=== PATIENT | male | born 1945 | race Caucasian/White ===

== ENCOUNTER 2017-03-20 19:42 | Emergency (ER) | payer OTHER, MEDICARE ==
[~2017-03-20] VITALS: Ht 180.3 cm; Wt 95.2 kg
[~2017-03-20 19:42] MED LIST: BISOPROLOL-HCT1 EAC1 PO; BISOPROLOL-HCTZ1 TAB PO; BUSPAR PO; BUSPIRONE HCL15 MG PO; LIPITOR20 MG PO; LOTREL 10/20 CA1 CAP PO; LOTREL 5/20 MG1 CAP PO; ZOLOFT PO; [UNRECOGNIZED DRUG - OTHER]; [UNRECOGNIZED DRUG - OTHER]
== END 2017-03-20 21:20 | disposition home or self-care (01) ==
LOC: CED 19:42
DX: S01.01XA Laceration without foreign body of scalp, initial encounter (principal); I10 Essential (primary) hypertension; F41.9 Anxiety disorder, unspecified; Z23 Encounter for immunization; V43.52XA Car driver injured in collision with other type car in traffic accident, initial encounter
CPT/HCPCS: 12002; 90471; 90715; 99283